=== PATIENT | female | born 1955 | race Caucasian/White ===

== ENCOUNTER 2023-06-30 08:38 | Outpatient (CLI) | payer MEDICARE, MEDICAID, SELFPAY ==
--- NOTE | ~2023-06-30 | MM_ITS ---
EXAMINATION: MM screening dio BI w delfino HISTORY: Screening mammogram TECHNIQUE: Craniocaudal and mediolateral oblique 3-D tomosynthesis images were obtained and synthetic 2-D images were generated. CAD analysis was submitted and interpreted. COMPARISON: No prior mammogram is available for comparison at this institution. BREAST PARENCHYMAL COMPOSITION: There are scattered areas of fibroglandular density. FINDINGS: Bilateral benign calcifications. There is no evidence of suspicious mass, calcification, or architectural distortion to suggest malignancy in either breast. There has been no suspicious interv al change. IMPRESSION: 1. No mammographic evidence of malignancy. 2. Recommend routine screening mammography in one year. BI-RADS Category 2: Benign finding(s). Reviewed, dictated and finalized at location [facility]. [employer]
--- NOTE | ~2023-06-30 | DEXA_ITS ---
Bone Density Report Name: LUZ FERGUSON Age: 67 Sex: Female Ethnicity: White Date of : 1955 Indication: postmenopausal; screening for osteoporosis; height loss; Referring Provider: CHRIS, LACIE Study: Bone densitometry was performed. Exam Date: June 30, 2023 Accession number: [id number] Bone Density: Region BMD T-score Z-score Classification AP Spine(L1-L4) 1.082 0.3 2.1 Normal Femoral Neck (Left) 0.898 0.4 2.0 Normal Total Hip (Left) 0.943 0.0 1.3 Normal Femoral Neck (Right) 0.827 -0.2 1.4 Normal Total Hip (Right) 0.917 -0.2 1.1 Normal Total Hip Mean 0.930 -0.1 1.2 Normal World Health Organization criteria for BMD impression classify patients as: Normal (T-score at or above -1.0), Osteopenia (T-score between -1.0 and -2.5), or Osteoporosis (T-score at or below -2.5). 10-year Fracture Risk: FRAX not reported because: All T-scores for Spine Total, Hip Total, Femoral Neck at or above -1.0 Clinical Information Provided by Patient: Smokes Has used the following medications: Vitamin D Patient maximum height was 64 Menopause Age: 50 No regular weight bearing exercise Does not regularly consume dairy products Drinks caffeinated beverages Onset of menses at age 14 Number of children 5 Impression: The patient has normal bone mass. The patient has risk factors, including: smoking. Discussion: BONE DENSITY IS ABOVE THE MINIMUM DESIRABLE LEVEL AT ALL SKELETAL SITES TESTED. This patient?s bone mineral density is above the minimum desirable level (T-score -1.0 or better) at all sites measured. The patient should follow a healthful lifestyle (good nutrition with adequate calcium and vitamin D, and appropriate weight-bearing exercise). Follow-Up: Consider repeating this study in 5 years or sooner if there is some new clinical indication. Reported by: SANTIAGO on 06/30/2023 9:12:00 AM. Reviewed, dictated and finalized at location Kalee BLACK
== END 2023-06-30 08:39 | disposition home or self-care (01) ==
PROVIDERS: PCP Nurse Practitioner Family; Visit Provider Nurse Practitioner Family
DX: Z12.31 Encounter for screening mammogram for malignant neoplasm of breast (principal); Z78.0 Asymptomatic menopausal state
CPT/HCPCS: 77063; 77067; 77080

== ENCOUNTER 2025-03-16 11:42 | Outpatient (CLI) | payer MEDICARE, SELFPAY ==
--- NOTE | 2025-03-16 | ECG_ITS ---
Test Date: 2025-03-16 12:11:08 Measurements Intervals [place] Rate: 91 P: 45 IL: 155 QRS: 11 QRSD: 86 T: 74 QT: 357 QTc: 441 Interpretive Statements SINUS RHYTHM LEFT VENTRICULAR HYPERTROPHY WITH ST-T CHANGE CONSIDER INFERIOR INFARCT, AGE INDETERMINATE CANNOT R/O SEPTAL INFARCT, AGE INDETERMINATE BASELINE ARTIFACT- I, II, III, AVR, AVL, AVF, V1 ABNORMAL ECG No previous ECG available for comparison Electronically Signed On 03-16-2025 12:52:38 CDT by Rizwan Wiley D.O.
--- OUTSIDE RECORDS SUMMARY | 2025-03-16 11:53 | XMS_ITS | Patient Health Record ---
Author Organization [facility] Address [address] [place] [address] Care Team Providers Care Manufacturing Inspector Name Role Phone Mikel Snowden Primary Care Provider Shankar LINK Unavailable Unavailable Barbara Carmona Unavailable [phone] Allergies Allergen (clinical drug ingredient) Drug/Non Drug Allergy documented on EMR Reaction Allergy Type Onset Date Status Penicillin Unknown Drug Allergy Active Results Component Value Reference Range Notes Hemoglobin A1c* Reviewed date:11/28/2024 10:54:29 AM Interpretation: Performing Lab:[facility], [address] [facility], Phone - [phone], Director - Palomo Notes/Report: Hemoglobin A1c 5.3 4.8-5.6 % . Prediabetes: 5.7 - 6.4 Diabetes: >6.4 Glycemic control for adults with diabetes: <7.0 CBC With Differential/Platel et* Reviewed date:11/28/2024 10:54:29 AM Interpretation: Performing Lab:[facility], [address] [facility], Phone - [phone], Director - PhDRicdoris Notes/Report: WBC 4.5 3.4-10.8 x10E3/uL RBC 4.04 3.77-5.28 x10E6/uL Hemoglobin 12.1 11.1-15.9 g/dL Hematocrit 37.6 34.0-46.6 % MCV 93 79-97 fL MCH 30.0 26.6-33.0 pg MCHC 32.2 31.5-35.7 g/dL RDW 13.1 11.7-15.4 % Platelets 126 150-450 x10E3/uL Neutrophils 70 Not Estab. % Lymphs 18 Not Estab. % Monocytes 9 Not Estab. % Eos 2 Not Estab. % Basos 1 Not Estab. % Neutrophils (Absolute) 3.1 1.4-7.0 x10E3/uL Lymphs (Absolute) 0.8 0.7-3.1 x10E3/uL Monocytes(Absolute) 0.4 0.1-0.9 x10E3/uL Eos (Absolute) 0.1 0.0-0.4 x10E3/uL Baso (Absolute) 0.1 0.0-0.2 x10E3/uL Immature Granulocytes 0 Not Estab. % Immature Grans (Abs) 0.0 0.0-0.1 x10E3/uL Lipid Panel* Reviewed date:11/28/2024 10:54:29 AM Interpretation: Performing Lab:[facility], [address] [place] [address], Phone - [phone], Director - [facility] Notes/Report: Cholesterol, Total 231 100-199 mg/dL Triglycerides 278 0-149 mg/dL HDL Cholesterol 55 >39 mg/dL VLDL Cholesterol Matti 49 5-40 mg/dL LDL Chol Calc ([facility]) 127 0-99 mg/dL CMP 14 Comprehensive Metabol ic Panel* Reviewed date:11/28/2024 10:54:29 AM Interpretation: Performing Lab:[facility], [address] [place] [address], Phone - [phone], Director - [facility] Notes/Report: Glucose 111 70-99 mg/dL BUN 17 8-27 mg/dL Creatinine 0.81 0.57-1.00 mg/dL eGFR 80 >59 mL/min/1.73 BUN/Creatinine Ratio 21 12-28 Sodium 140 134-144 mmol/L Potassium 4.2 3.5-5.2 mmol/L Chloride 101 96-106 mmol/L Carbon Dioxide, Total 23 20-29 mmol/L Calcium 9.5 8.7-10.3 mg/dL Protein, Total 7.0 6.0-8.5 g/dL Albumin 4.5 3.9-4.9 g/dL Globulin, Total 2.5 1.5-4.5 g/dL Bilirubin, Total <0.2 0.0-1.2 mg/dL Alkaline Phosphatase 57 44-121 IU/L AST (SGOT) 33 0-40 IU/L ALT (SGPT) 30 0-32 IU/L TSH Rfx on Abnormal to Free T4 Reviewed date:11/28/2024 10:54:29 AM Interpretation: Performing Lab:[facility], [address] [facility], Phone - [phone], Director - Lianne Notes/Report: TSH 3.420 0.450-4.500 uIU/mL UA/M w/rflx Culture, Routine Reviewed date:11/28/2024 10:54:29 AM Interpretation: Performing Lab:[facility], [address] [facility], Phone - [phone], Director - [facility] Notes/Report: Specific [place] 1.024 1.005-1.030 pH 5.5 5.0-7.5 Urine-Color Yellow Yellow Appearance Cloudy Clear WBC Esterase 1+ Negative Protein Trace Negative/Trace Glucose Negative Negative Ketones Negative Negative Occult Blood Negative Negative Bilirubin Negative Negative Urobilinogen,Semi-Qn 0.2 0.2-1.0 mg/dL Nitrite, Urine Negative Negative Microscopic Examination See below: Micr oscopic was indicated and was performed. Urinalysis Reflex This speci men has reflexed to a Urine Culture. WBC 11-30 0 - 5 /hpf RBC 0-2 0 - 2 /hpf Epithelial Cells (non renal) >10 0 - 10 /hpf Casts None seen None seen /lpf Bacteria Moderate None seen/Few Urine Culture, Routine Final report Result 1 Escherichia coli Cefazolin with an MARLYS <=16 predicts susceptibility to the oral agents cefaclor, cefdinir, cefpodoxime, cefprozil, cefuroxime, cephalexin, and loracarbef when used for therapy of uncomplicated urinary tract infections due to E. coli, Klebsiella pneumoniae, and Proteus mirabilis. Greater than 100,000 colony forming units per mL Antimicrobial Susceptibility S = Susceptible; I = Intermediate; R = Resistant P = Positive; N = Negative MICS are expressed in micrograms per mL Antibiotic RSLT#1 RSLT#2 RSLT#3 RSLT#4 Amoxicillin/Clavulanic Acid I Ampicillin R Cefazolin S Cefepime S Cefoxitin S Cefpodoxime S Ceftriaxone S Ciprofloxacin S Ertapenem S Gentamicin S Levofloxacin S Meropenem S Nitrofurantoin S Piperacillin/Tazobactam S Tetracycline S Tobramycin S Trimethoprim/Sulfa S Hemoglobin A1c CLIA Waived Reviewed date:01/27/2025 09:24:19 AM Interpretation: Performing Lab: Notes/Report: Hemoglobin A1c 5.7 4.0 - 6.4 % CMP 14 Comprehensive Metabol ic Panel* Reviewed date:11/09/2024 03:25:38 PM Interpretation: Performing Lab:[facility], [address] [facility], Phone - [phone], Director - [facility] Notes/Report: Glucose TNP Test not perfor med. No serum gel received. BUN TNP Test not perfor med Creatinine TNP Test not perfor med Sodium TNP Test not perfor med Potassium TNP Test not perfor med Chloride TNP Test not perfor med Carbon Dioxide, Total TNP Test n ot performed Calcium TNP Test not perfor med Protein, Total TNP Test not perf ormed Albumin TNP Test not perfor med Bilirubin, Total TNP Test not pe rformed Alkaline Phosphatase TNP Test no t performed AST (SGOT) TNP Test not perfor med ALT (SGPT) TNP Test not perfor med Hemoglobin A1c* Reviewed date:11/09/2024 03:25:38 PM Interpretation: Performing Lab:[facility], [address] [place] [address], Phone - [phone], Director - [facility] Notes/Report: Hemoglobin A1c TNP Test not performed. No lavender top tube submitted. . Prediabetes: 5.7 - 6.4 Diabetes: >6.4 Glycemic control for adults with diabetes: <7.0 TSH Rfx on Abnormal to Free T4 Reviewed date:11/09/2024 03:25:38 PM Interpretation: Performing [facility], [address] [facility], Phone - [phone], Director - [facility] Notes/Report: TSH TNP Test not perfor med. No serum gel received. Specimen Status Report TNP Test not performed. No lavender top tube submitted. TEST: [id number] CBC With Differential/Platelet [id number] Hemoglobin A1c Request Problem TNP Test not performed. No serum gel received. TEST: [id number] Comp. Metabolic Panel (14) [id number] Lipid Panel [id number] TSH Rfx on Abnormal to Free T4 Lipid Panel* Reviewed date:11/09/2024 03:25:38 PM Interpretation: Performing Lab:[address], Phone - [phone], Director - [facility] Notes/Report: Cholesterol, Total TNP Test not performed. No serum gel received. Triglycerides TNP Test not perfo rmed HDL Cholesterol TNP Test not per formed VLDL Cholesterol Matti TNP Unable to calculate result since non-numeric result obtained for component test. Urinalysis In-House, Routine Reviewed date:11/07/2024 04:50:59 PM Interpretation: Performing Lab: Notes/Report: Urine-Color mark Appearance clear Leukocytes neg Nitrite, Urine neg Urobilinogen,Semi-Qn 0.2 Protein neg pH 5.5 Occult Blood ng Specific [place] 1.030 Ketones neg Bilirubin neg Glucose neg Written Authorization Reviewed date:11/14/2024 02:28:22 PM Interpretation: Performing Lab:[facility] [address], Phone - [phone], Director - [facility] Notes/Report: Written Authorization Written Authorization Received. Authorization received from Original Requisition 11-09-2024 Logged by Severo José UA/M w/rflx Culture, Routine Reviewed date:11/14/2024 02:28:22 PM Interpretation: Performing Lab:[facility], Phone - [phone], Director - [facility] Notes/Report: Specific [place] TNP Test not performed. Test not performed. Attempts to contact your facility were unsuccessful. SAMPLE HAS BEEN DISCARDED pH TNP Test not perfor med Protein TNP Test not perfor med Glucose TNP Test not perfor med Ketones TNP Test not perfor med Specimen Status Report TNP Test not performed. Test not performed. Attempts to contact your facility were unsuccessful. TEST: [id number] UA/M w/rflx Culture, Routine SAMPLE HAS BEEN DISCARDED CBC With Differential/Platel et* Reviewed date:11/09/2024 03:25:38 PM Interpretation: Performing Lab:[address], Phone - [phone], Director - [facility] Notes/Report: WBC TNP Test not perfor med. No lavender top tube submitted. RBC TNP Test not perfor med Hemoglobin TNP Test not perfor med Hematocrit TNP Test not perfor med Platelets TNP Test not perfor med Neutrophils TNP Test not perfor med Lymphs TNP Test not perfor med Monocytes TNP Test not perfor med Eos TNP Test not perfor med Lymphs (Absolute) TNP Test not p erformed Eos (Absolute) TNP Test not perf ormed Baso (Absolute) TNP Test not per formed Reason For Referral Reason Abdominal hernia Diagnosis 1 Abdominal hernia (K4 6.9) Referral Organization [facility] Referring Provider First Name Barbara Referring Provider Last Name Short Referring Provider [facility] Referred Provider Specialty General Surg saima General Notes Natasha Orr 11/14/2024 04:17:17 PM >verified with staff that patients insurance is accepted., Natasha Orr 11/14/2024 04:22:52 PM >letter mailed, message sent, Natasha Orr 11/15/2024 05:13:47 PM >Patient given number to general surgeons office., Natasha Orr 12/19/2024 12:10:13 PM >refaxing referral to [facility], Attn: Marycruz- No imaging available to send. Added lab results, Didier KUMAR, Ladonna Bhagat 02/14/2025 12:38:24 PM > Pt had surgery. Notes in Pt documents. Clinical [place] [facility] [address] [place] [address] [place] [address]. [id number], , Referral Priority Routine Medications Medication SIG (Take, Route, Frequency, Duration) Notes Start Date End Date Status Fish Oil 1000 MG 1 capsule Orally onc e a day Active Triamcinolone Acetonide 0.1 % 1 application Externally twice a day 01/27/2025 Active Lisinopril 40 MG 1 tablet Orally Once a day; Duration: 30 days Active Iron 325 (65 Fe) MG 1 tablet Orally once a day Active Vitamin D2 Active Metoprolol Tartrate 25 MG TAKE 1 TABLET BY MOUTH DAILY WITH FOOD; Duration: 90 Active metFORMIN HCl 1000 MG 1 tablet with a me al Orally twice a day; Duration: 30 days Active Furosemide 40 MG 1 tablet Orally Once a day; Duration: 30 days Active AZO Bladder Control/Go-Less - as directed Orally Acti ve Aspirin 81 81 MG 1 tablet Orally ever y other day Not-Taking Nitrofurantoin Monohyd Macro 100 MG 1 capsule with food Orally every 12 hrs; Duration: 5 days 11/28/2024 Not-Taking Social History Tobacco Use: Social History Observation Description Date Details (start date - stop date) Former Smoker NA - NA Tobacco Control (Standard) Question Answer Notes Tobacco use: Former smoker How long has it been since y ou last smoked? 6-12 months Additional Findings: Tobacco non-user Cu rrent nonsmoker,Nonsmoker for personal reasons Problems Problem Type SNOMED Code ICD Code Onset Dates Problem Status W/U Status Risk Notes Problem Hypertension (42968513) Hypertension (I10) Active confirmed Problem Overweight (317938031) Over weight (E66.3) Active confirmed Problem Diabetes mellitus (75130421) Diabetes mellitus (E11.9) Active confirmed Problem Mixed hyperlipidemia (635076538) Elevated triglycerides with high cholesterol (E78.2) Active confirmed Problem Thrombocytopenic disorder (433623789) Decreased platelet count (D69.6) Active confirmed Problem Tobacco user (302763462) Vaping nicotine dependence, 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) Active confirmed Vital Signs Heart Rate 83 /min 01/27/2025 Temperature 97.7 degrees Fahrenheit 01/27/2025 Respiratory Rate 16 /min 01/27/2025 Oximetry 99 % 01/27/2025 Blood pressure diastolic 78 mm Hg 01/27/2025 Height 62 in 01/27/2025 Blood pressure systolic 122 mm Hg 01/27/2025 Weight 205.0 lbs 01/27/2025 BMI 37.49 kg/m2 01/27/2025 Encounters Encounter Location Date Provider Diagnosis [facility] [address] [place] [address] 11/18/2024 Barbara Carmona Screening for diabet es mellitus Z13.1 ; Screening for deficiency anemia Z13.0 ; Screening for hyperlipidemia Z13.220 ; Screening for metabolic disorder Z13.228 ; Screening for thyroid disorder Z13.29 and Symptoms of urinary tract infection R39.9 [facility] [address] [place] [address] 11/07/2024 Barbara Carmona Establishing care wi th new doctor, encounter for Z71.89 ; Screening for deficiency anemia Z13.0 ; Screening for metabolic disorder Z13.228 ; Screening for diabetes mellitus Z13.1 ; Screening for thyroid disorder Z13.29 ; Screening for hyperlipidemia Z13.220 ; Over weight E66.3 ; Dysuria R30.0 ; Screening for breast cancer Z12.31 ; Abdominal hernia K46.9 ; Hypertension I10 ; Diabetes mellitus E11.9 and Vaping nicotine dependence, tobacco product F17.290 [facility] [place] [place] [address] 01/27/2025 Mikel Snowden Cardiac murmur R01.1 ; Chest pain R07.9 ; Hypertension I10 ; Diabetes mellitus E11.9 ; Umbilical hernia K42.9 ; Over weight E66.3 and Eczema of both external ears H60.[address] [place] [address] 11/09/2024 Barbara Carmona Screening for deficiency anemia Z13.0 ; Screening for metabolic disorder Z13.228 ; Screening for diabetes mellitus Z13.1 ; Screening for thyroid disorder Z13.29 and Screening for hyperlipidemia Z13.220 [facility] [place] [place] [address] 11/14/2024 Barbara Carmona Symptoms of urinary tract infection R39.9 [facility] [address] [place] [address] 11/15/2024 Mikel Snowden [facility] [place] [address] 11/15/2024 Mikel Snowden [facility] [place] [address] 11/18/2024 Mikel Snowden [address] [place] [address] 11/28/2024 Barbara Carmona Decreased platelet count D69.6 ; Elevated triglycerides with high cholesterol E78.2 and Urinary tract infection N39.0 [facility] [address] [place] [address] 12/19/2024 Mikel Snowden [address] [facility] [place] [address] 01/30/2025 Mikel Snowden [address] [place] [address] 02/06/2025 Mikel Snowden [address] [place] [address] 02/06/2025 Mikel Snowden Assessments Encounter Date Diagnosis (ICD Code) Assessment Notes Treatment Notes Treatment Clinical Notes Section Notes 11/07/2024 Establishing care with new doctor, encounter for (ICD-10 - Z71.89) 11/07/2024 Screening for deficiency anemia (ICD-10 - Z13.0) 11/09/2024 Screening for metabolic disorder (ICD-10 - Z13.228) 11/09/2024 Screening for deficiency anemia (ICD-10 - Z13.0) 11/18/2024 Screening for diabetes mellitus (ICD-10 - Z13.1) 11/28/2024 Elevated triglycerides with high cholesterol (ICD-10 - E78.2) 11/28/2024 Decreased platelet count (ICD-10 - D69.6) 01/27/2025 Chest pain (ICD-10 - R07.9) C/W NON-CARDIAC PAIN 01/27/2025 Cardiac murmur (ICD-10 - R01.1) 11/14/2024 Symptoms of urinary tract infection (ICD-10 - R39.9) 01/27/2025 Hypertension (ICD-10 - I10) 11/18/2024 Screening for deficiency anemia (ICD-10 - Z13.0) 11/28/2024 Urinary tract infection (ICD-10 - N39.0) 11/09/2024 Screening for diabetes mellitus (ICD-10 - Z13.1) 11/07/2024 Screening for metabolic disorder (ICD-10 - Z13.228) 11/09/2024 Screening for thyroid disorder (ICD-10 - Z13.29) 11/07/2024 Screening for diabetes mellitus (ICD-10 - Z13.1) 11/18/2024 Screening for hyperlipidemia (ICD-10 - Z13.220) 01/27/2025 Diabetes mellitus (ICD-10 - E11.9) 01/27/2025 Umbilical hernia (ICD-10 - K42.9) [facility] 11/18/2024 Screening for metabolic disorder (ICD-10 - Z13.228) 11/07/2024 Screening for thyroid disorder (ICD-10 - Z13.29) 11/09/2024 Screening for hyperlipidemia (ICD-10 - Z13.220) 11/18/2024 Screening for thyroid disorder (ICD-10 - Z13.29) 11/07/2024 Screening for hyperlipidemia (ICD-10 - Z13.220) 01/27/2025 Over weight (ICD-10 - E66.3) 01/27/2025 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 Pt was educated on use of antibiotic medication including dosing, side effects, adverse effects and anticipated response. Pt was also educated on importance of completing full course of treatment as ordered. Patient voiced understanding of all. Plan Of Treatment Future Test Test Name Order Date Electrocardiogram (EKG) 01/27/2025 Echo doppler exam 01/27/2025 Insurance Providers Payer Name Payer Address Payer Phone Subscriber Number Group Number Insured Name Patient Relationship to Insured Coverage Start Date Coverage End Date [facility] [address] [address] [place] [address] [id number] YinkaAna Luisa Self - patient is the insured Medical (General) History Surgical History Surgery Date(Month/Year) tonsillectomy 1977 cholecystectomy 1989
--- OUTSIDE RECORDS SUMMARY | 2025-03-16 11:53 | XMS_ITS | Clinical Summary ---
Author Organization [facility] Address [facility] [place] [address] Care Team Providers Care Art Professor Name Role Phone Mikel Snowden MD Primary Care Provider [phone] Allergies Active Allergy Reactions Criticality Noted Date Comments Penicillins Unknown 03/08/2013 Medications allopurinol 100 MG tablet Take 1 tablet (100 mg total) by mouth daily. 17 06/28/2019 Active vitamin D2, ergocalciferol, 68239 UNITS capsule Take 1 capsule (50,000 Units total) by mouth once a week. 12 06/27/2019 Active furosemide 40 MG tablet Take 1 tablet (40 mg total) by mouth every morning. FOR 14 DAYS 5 06/28/2019 Active lisinopril 40 MG tablet Take 1 tablet (40 mg total) by mouth every morning. FOR 14 DAYS 4 06/28/2019 Active metFORMIN 1000 MG tablet Take 1 tablet (1,000 mg total) by mouth 2 (two) times daily. 4 06/28/2019 Active metoprolol succinate ER 25 MG 24 hr tablet Take 1 tablet (25 mg total) by mouth daily. 4 06/28/2019 Active potassium chloride CR 10 MEQ tablet Take 1 tablet (10 mEq total) by mouth every other day. 4 06/28/2019 Active acetaminophen (TYLENOL) 325 MG tablet Take 2 tablets (650 mg total) by mouth every 4 (four) hours as needed for Pain. For Mild Pain or Fever 02/09/2025 Active oxyCODONE-aceta minophen (PERCOCET) 5-325 MG tabletIndicatio ns:Acute Pain < 7 Day Supply Take 1-2 tablets by mouth every 6 (six) hours as needed for Pain. Indications: Acute Pain < 7 Day Supply For Severe Pain 12 tablet 02/09/2025 Active Active Problems No known active problems Encounters Date Type Department Care Team Description 02/09/2025 9:32 AM CDT - 02/09/2025 11:43 AM CDT Surgery [facility] [place] [address] Max Fairchild MD ROBOTIC ASSISTED LAPAROSCOPIC INCARCERATED UMBILICAL HERNIA REPAIR WITH MESH 02/09/2025 9:32 AM CDT Anesthesia Event [facility] [place] [address] Daisha Jain MD Jackson, Samantha Rae, FNP 02/09/2025 7:31 AM CDT - 02/09/2025 1:10 PM CDT Hospital Encounter [facility] [place] [address] Max Fairchild MD Discharge Disposition: Home or Self Care (Routine Discharge) 02/09/2025 Travel 02/02/2025 Travel from Last 3 Months Immunizations Immunization Administration Dates Next Due Tdap (Boostrix) 07/20/2019 Family History Medical History Relation Comments Cancer Father Cancer Mother Relation Status Comments Father Mother Social History Tobacco Use Types Packs/Day Years Used Date Smoking Tobacco: Former Cigarettes Smokeless Tobacco: Never Tobacco Cessation:Counseling Given: Not Answered Alcohol Use Standard Drinks/Week Comments No 0 (1 standard drink = 0.6 oz pur e alcohol) AUDIT-C Answer Date Recorded Frequency of Alcohol Consumption Never 07/20/2019 Average Number of Drinks Not on file 019 Frequency of Binge Drinking Not on file 07/10 Comments No Sex and Gender Information Value Date Recorded Sex Assigned at Not on file Legal Sex Female 4:50 PM CDT Gender Identity Not on file Sexual Orientation Not on file Last Filed Vital Signs Vital Sign Reading Time Taken Comments Blood Pressure 125/82 02/09/2025 1:05 PM CDT Pulse 91 02/09/2025 1:05 PM CDT Temperature 36.4 C (97.6 F) 02/09/2025 1:05 PM CDT Respiratory Rate 16 02/09/2025 1:05 PM CDT Oxygen Saturation 96% 02/09/2025 1:05 PM CDT Inhaled Oxygen Concentration - - Weight 90.9 kg (200 lb 6.4 oz) 02/09/2025 8:00 A M CDT Height 157.5 cm (5' 2) 02/09/2025 8:00 AM CDT Body Mass Index 36.65 02/09/2025 8:00 AM CDT Plan of Treatment Health Maintenance Due Date Last Done Comments Colorectal Cancer Screening Colonoscopy (10 Years) 1955 Hepatitis C 1975 Mammogram Screening 1997 Zoster Vaccines (1 of 2) 2007 Pneumococcal Vaccine: 50+ Years (3 of 3 - PCV20 or PCV21) 06/18/2021 06/18/2016, 12/21/2014 Annual Medicare Wellness Visit 2022 Dexa Scan (General) 2022 COVID-19 Vaccine (2 - 2023-2 5 season) 2024 10/16/2020, 10/16/2020 DTaP, Tdap and Td Vaccines ( 3 - Td or Tdap) 07/20/2029 07/20/2019, 06/18/2016 RSV Immunization or 60+ Years (1 - 1-dose 75+ series) 2032 Meningococcal B Vaccine Aged Out No l onger eligible based on patient's age to complete this topic Meningococcal Vaccine Aged Out No elaine jemal eligible based on patient's age to complete this topic RSV Immunizations Under 20 Months Aged Out No longer eligible b ased on patient's age to complete this topic Medical Devices Implanted Type Area Smt Machine Operator Device Identifier Shelf Expiration Date Model / Serial / Lot Mesh Ventralight St 4.5in [place] - [id number] Implanted:Qty: 1 on 02/09/2025 by Max Fairchild MD at [facility] [employer] [id number] 08/06/2026 [id number] / / [id number] Procedures Procedure Name Priority Date/Time Associated Diagnosis Comments POCT GLUCOSE - DOCKED DEVICE Routine 02/09/2025 11:09 AM CDT RPR AA HRN 1ST < 3 CM RDC 02/09/2025 9:32 AM CDT UMBILICAL HERNIA K42.9 Case Notes SCHED WITH HECTOR ON 12/27/24 JDK PHONE ASSESS POCT GLUCOSE - DOCKED DEVICE Routine 02/09/2025 8:21 AM CDT BASIC METABOLIC PANEL Routine 02/09/2025 8:18 AM CDT from Last 3 Months Results * (ABNORMAL) POCT glucose (02/09/2025 11:09 AM CDT) Only the most recent of2 resultswithin the time period is included. GLUCOSE POC 192(H) 70 - 99 mg/dL 02/09/2025 11:15 AM CDT [facility] 02/09/2025 11:0 9 AM CDT Max Fairchild MD POCT ORDERABLES - DEVICE Final Result [facility] [address] [place] [address], [place] [phone] * (ABNORMAL) BASIC METABOLIC PANEL (02/09/2025 8:18 AM CDT) GLUCOSE 125(H) 70 - 99 MG/DL 02/09/2025 8:52 AM CDT [facility] BUN 31(H) 7 - 18 MG/DL 02/09/2025 8:52 AM CDT [facility] CREATININE S/P/B 0.88 0.55 - 1.02 MG/DL 02/09/2025 8:52 AM CDT [facility] SODIUM S/P/B 138 136 - 145 MMOL/L 02/09/2025 8:52 AM CDT [facility] POTASSIUM S/P/B 3.9 3.5 - 5.1 MMOL/L 02/09/2025 8:52 AM CDT [facility] CHLORIDE S/P/B 107 97 - 115 MMOL/L 02/09/2025 8:52 AM CDT [facility] CO2 22.7 21 - 32 MMOL/L 02/09/2025 8:52 AM CDT [facility] CALCIUM S/P/B 9.5 8.5 - 10.1 MG/DL 02/09/2025 8:52 AM CDT [facility] ANION GAP 8.3 2 - 10 MMOL/L 02/09/2025 8:52 AM CDT [facility] BUN CREATININE RATIO 35.3(H) 6 - 26 02/09/2025 8:52 AM CDT [facility] GFR ESTIMATE 72(L) >90 ML/MIN/1.7 3 M2 02/09/2025 8:52 AM CDT [facility] Comment: NOTE: eGFR is not calculated for patients <18 years of age or gender unknown. This is an estimated GFR calculation using the new CKD EPI creatinine equation without race and so does not require a correction factor for race. This estimated GFR should not be used for calculating drug doses. 02/09/2025 8:18 AM CDT Daisha Jimenez MD LABORATORY Final Result [facility] [address] [place] [address], [place] [phone] from Last 3 Months Insurance [facility] Care Teams Art Professor Relationship Specialty Start Date End Date Mikel Snowden MD [address] [facility] [address] [place] [id number] PCP - General INTERNAL MEDICINE 02/06/25
--- OUTSIDE RECORDS SUMMARY | 2025-03-16 11:53 | XMS_ITS | Encounter Summary ---
Author Organization [facility] Address [address] [place] [address] Care Team Providers Care Supervisor Orchard Name Role Phone Stephania Goff MD Primary Care Provider [phone] Mikel Snowden MD Primary Care Provider [phone] Encounter Details Date Type Department Care Team (Latest Contact Info) Description 06/15/2018 Abstract [facility] Letty Mike MD Social History Tobacco Use Types Packs/Day Years Used Date Smoking Tobacco: Never Assessed Comments Unknown Sex and Gender Information Value Date Recorded Sex Assigned at Not on file Legal Sex Female 4:50 PM CDT Gender Identity Not on file Sexual Orientation Not on file documented as of this encounter Plan of Treatment Not on file documented as of this encounter Visit Diagnoses Not on filedocumented in this encounter Care Teams Supervisor Orchard Relationship Specialty Start Date End Date Stephania Goff MD [address] [place] [address] PCP - General FAMILY PRACTICE 07/20/19 02/01/25 Mikel Snowden MD [address] [facility] [address] [place] [address] PCP - General INTERNAL MEDICINE 02/06/25 documented as of this encounter
--- OUTSIDE RECORDS SUMMARY | 2025-03-16 11:53 | XMS_ITS | Continuity of Care Document ---
Author Organization [facility] ter Address [address] [place] [address] Phone Care Team Providers Care Threading Machine Operator Name Role Phone Puneet Murray Unavailable Unavailable Medications Medication Instructions Dosage Effective Dates (start - stop) Status Comments metformin 850 mg tablet 1 po bid - Active lisinopril 20 mg tablet 1 po qd - Active POTASSIUM CHLORIDE 10MEQ CAPSULE SA 1 po qd - Active Lasix 40 mg tablet 1 po qd - Active Glucophage 500 mg tablet 1 po bid - Active Norvasc 10 mg tablet 1 po qd - Active Aspir-81 81 mg tablet,delayed release 1 po qd - Active Tenormin 25 mg tablet 1 po qd - Active LEVAQUIN 750 MGTABLET 1 po qd - Active Flonase 50 mcg/actuation Nasal [place] 1-2 sprays nasally qd - Active metformin 850 mg tablet 1 po bid - No Longer Active lisinopril 20 mg tablet 1 po qd - No Longer Active Procedures Procedure Date Offic/outpt E&m Estab Mod-ak 2 07 Offic/outpt E&m Estab Mod-ak 2 07 Offic/outpt E&m Estab Mod-ak 2 07 Offic/outpt E&m Estab Mod-ak 2 Skin Tag Removal Multiple, Up To 15 Offic/outpt E&m [facility] 7 Advance Directives Directive Yes / No Effective Date File Name No Information Encounters Encounter Description Practice Location Reason(s) For Visit Diagnoses Date Provider Providers Copied on Encounter Offic/outpt E&m Estab Mod-hi 2 [facility], [address], [place], [place], [id number], tel:[phone] [facility] No Information Terri Teixeira. [address] [facility], [address], [place], [place], [facility], . tel:[phone] Offic/outpt E&m Estab Mod-[address], [address] [facility] [address], [place], [place], [id number], tel:[phone] [facility] No Information Terri Teixeira. [address] [facility], [address], [place], [place], [facility], . tel:[phone] Offic/outpt E&m Estab [facility]-[address], [address] [facility] [address], [place], [place], [id number], tel:[phone] [facility] No Information Terri Teixeira. [address] [facility], [address], [place], [place], [facility], . tel:[phone] Offic/outpt E&m Estab [facility]-[address], [address] [facility] [address], [place], [place], [id number], tel:[phone] [facility] No Information Terri Teixeira. [address] [facility], [address], [place], [place], [facility], . tel:[phone] Referring Provider: Puneet Lang, [address] [facility] [address], [place], [address]. tel:[phone] Offic/outpt E&m [facility], [address], [place], [place], [id number], [place] tel:[phone] [facility] No Information Terri Teixeira. [address] [facility], [address], [place], [address], [place]. tel:[phone] Family History Family Member Type Diagnosis Age At Onset No Information Payers Payer name Insurance type Covered constitution party ID Authoriza brain(s) Bcbs CI [id number] Social History Type Description Quantity Date Captured Comments Sex Female Smoking Status No Information Chief Complaint And Reason For Visit No Information Reason For Referral Reason For Referral No Information History Of Present Illness Encounter Date Complaint History Of Prese nt Illness No Information Functional Status Date Functional Assessmen t No Information Instructions Date Instruction Additional Infor mation No Information Assessments Type Assessment Date No Information Patient Care Teams Name Effective Dates (start - stop) Status Members No Information
--- OUTSIDE RECORDS SUMMARY | 2025-03-16 11:53 | XMS_ITS ---
Author Organization [facility] Address [address] [place] [address] Care Team Providers Care Mask Designer Name Role Phone Snowden Mikel Primary Care Provider [phone] Shankar LINK Unavailable Unavailable Barbara Carmona Unavailable [phone] Results Component Value Reference Range Notes UA/M w/rflx Culture, Routine Reviewed date:11/28/2024 10:54:29 AM Interpretation: Performing Lab:[facility] [place], [address] [facility], Phone - [phone], Director - Palomo Notes/Report: Specific [place] 1.024 1.005-1.030 pH 5.5 5.0-7.5 Urine-Color Yellow [...] S Tetracycline S Tobramycin S Trimethoprim/Sulfa S TSH Rfx on Abnormal to Free T4 Reviewed date:11/28/2024 10:54:29 AM Interpretation: Performing Lab:[facility] [place] [facility], [address] [place] [address], Phone - [phone], Director - Palomo Notes/Report: TSH 3.420 0.450-4.500 uIU/mL CMP 14 Comprehensive Metabol ic Panel* Reviewed date:11/28/2024 10:54:29 AM Interpretation: Performing Lab:[facility] [place], [address] [facility], Phone - [phone], Director - Palomo Notes/Report: Glucose 111 70-99 mg/dL BUN 17 [...] 0-40 IU/L ALT (SGPT) 30 0-32 IU/L Lipid Panel* Reviewed date:11/28/2024 10:54:29 AM Interpretation: Performing Lab:[facility] [place], [address] [facility], Phone - [phone], Director - Palomo Notes/Report: Cholesterol, Total 231 100-199 mg/dL Triglycerides 278 0-149 mg/dL HDL Cholesterol 55 >39 mg/dL VLDL Cholesterol Matti 49 5-40 mg/dL LDL Chol Calc ([facility]) 127 0-99 mg/dL CBC With Differential/Platel et* Reviewed date:11/28/2024 10:54:29 AM Interpretation: Performing Lab:[facility] [place], [address] [facility], Phone - [phone], Director - Palomo Notes/Report: WBC 4.5 3.4-10.8 x10E3/uL RBC 4.04 [...] % Immature Grans (Abs) 0.0 0.0-0.1 x10E3/uL Hemoglobin A1c* Reviewed date:11/28/2024 10:54:29 AM Interpretation: Performing Lab:[facility] [place], [address] [facility] [place], Phone - [phone], Director - Palomo Notes/Report: Hemoglobin A1c 5.3 4.8-5.6 % . Prediabetes: 5.7 - 6.4 Diabetes: >6.4 Glycemic control for adults with diabetes: <7.0 REASON FOR VISIT blood draw, repeat urine Medications Medication SIG (Take, Route, Frequency, Duration) Notes Start Date End Date Status Furosemide 40 MG 1 tablet Orally Once a day Active Metoprolol Tartrate 25 MG 1 tablet with food Orally once a day Active Iron 325 (65 Fe) MG 1 tablet Orally once a day Active Vitamin D2 Active Fish Oil 1000 MG 1 capsule Orally onc e a day Active metFORMIN HCl 1000 MG 1 tablet with a me al Orally twice a day Active Lisinopril 40 MG 1 tablet Orally Once a day Active Aspirin 81 81 MG 1 tablet Orally ever y other day Active Encounters Encounter Location Date Provider Diagnosis [place] [address] [place] [address] 11/18/2024 Barbara Carmona Screening for diabet es mellitus Z13.1 ; Screening for deficiency anemia Z13.0 ; Screening for hyperlipidemia Z13.220 ; Screening for metabolic disorder Z13.228 ; Screening for thyroid disorder Z13.29 and Symptoms of urinary tract infection R39.9 Assessments Encounter Date Diagnosis (ICD Code) Assessment Notes Treatment Notes Treatment Clinical Notes Section Notes 11/18/2024 Screening for diabetes mellitus (ICD-10 - Z13.1) 11/18/2024 Screening for deficiency anemia (ICD-10 - Z13.0) 11/18/2024 Screening for hyperlipidemia (ICD-10 - Z13.220) 11/18/2024 Screening for metabolic disorder (ICD-10 - Z13.228) 11/18/2024 Screening for thyroid disorder (ICD-10 - Z13.29) 11/18/2024 Symptoms of urinary tract infection (ICD-10 - R39.9) Plan Of Treatment No Information Progress Notes * Ana Luisa HONEYCUTTDOB:1955 (69 yo F)Acc No.[id number]:11/18/2024 UNLOCKED PROGRESS NOTE Patient: Ana Luisa MOYA Provider: Ilana Carmona APRN :1955 A ge:69 Y S ex:Female Date:11/18/2024 Address:[address] [place], [place] [id number] Pcp:Mikel Snowden Check In:08:23 AM PRIMARY CARE MD Subjective: * Chief Complaints: * 1 . Blood draw, repeat urine. * Medical History: * Medications: T aking Aspirin 81 81 MG Tablet Delayed Release 1 tablet Orally every other day , Taking metFORMIN HCl 1000 MG Tablet 1 tablet with a meal Orally twice a day , Taking Lisinopril 40 MG Tablet 1 tablet Orally Once a day , Taking Furosemide 40 MG Tablet 1 tablet Orally Once a day , Taking Metoprolol Tartrate 25 MG Tablet 1 tablet with food Orally once a day , Taking Fish Oil 1000 MG Capsule 1 capsule Orally once a day , Taking Iron 325 (65 Fe) MG Tablet 1 tablet Orally once a day , Taking Vitamin D2 Objective: * Vitals: Assessment: * Assessment: 1. S creening for diabetes mellitus - Z13.1 2 . S creening for deficiency anemia - Z13.0 3 . S creening for hyperlipidemia - Z13.220 4 .?Screening for metabolic disorder - Z13.228 5 . S creening for thyroid disorder - Z13.29 6 . S ymptoms of urinary tract infection - R39.9 Plan: * Treatment: 2. S creening for deficiency anemia L AB: CBC With Differential/Platelet* (Collection Date & Time - 11/18/2024) 3. S creening for hyperlipidemia L AB: Lipid Panel* (Collection Date & Time - 11/18/2024) 4. S creening for metabolic disorder L AB: CMP 14 Comprehensive Metabolic Panel* (Collection Date & Time - 11/18/2024) 5. S creening for thyroid disorder L AB: TSH Rfx on Abnormal to Free T4 (Collection Date & Time - 11/18/2024) 6. S ymptoms of urinary tract infection L AB: UA/M w/rflx Culture, Routine (Collection Date & Time - 11/18/2024) * * Electronic signature of Tamika Carmona , [id number] on 03/16/2025 at 11:52 AM CDT Sign off status: Pending * Provider: Ilana Carmona APRN Date: 0 11/18/2024 Generated for Jeison burch/James/Mayra on: 0 03/16/2025 11:52 AM CDT
== END 2025-03-16 11:43 | disposition home or self-care (01) ==
LOC: ANHCARD 11:51
PROVIDERS: PCP Nurse Practitioner Family; Visit Provider Internal Medicine
DX: R07.9 Chest pain, unspecified (principal); R94.31 Abnormal electrocardiogram [ECG] [EKG]
CPT/HCPCS: 93005

== ENCOUNTER 2025-03-21 13:42 | Outpatient (CLI) | payer MEDICARE, MEDICAID, SELFPAY ==
--- NOTE | 2025-03-21 | ECHO_ITS ---
Patient Info Name: Ana Luisa Honeycutt Age: 69 years : 1955 Gender: Female Ht: 62 in Wt: 200 lbs BSA: 2.04 m2 HR: 80 bpm BP: 137 / 80 mmHg Technical Quality: Good Exam Date: 03/21/2025 1:57 PM Patient Status: O Admit Date: 03/21/2025 Exam Type: CA echo doppler color flow Complete two-dimensional, color flow and Doppler transthoracic echocardiogram is performed. Cellophaner: Amy Velásquez Attending Provider: Mikel Snowden MD Summary 1. Complete two-dimensional, color flow and Doppler transthoracic echocardiogram is performed. 2. Left ventricular chamber dimension is normal. 3. Left ventricular systolic function is normal, estimated at 60-65. 4. The left ventricular diastolic function is grade I diastolic dysfunction. 5. E/e' 10 is mildly elevated. 6. Left atrial chamber dimension is mildly enlarged. 7. There is mild aortic valve sclerosis. 8. There is mild aortic valve regurgitation. 9. The mitral valve has a mildly calcified annulus. 10. There is trace tricuspid valve regurgitation. 11. No pulmonary hypertension, estimated pulmonary arterial systolic pressure is 29 mmHg. 12. There is trace pulmonic regurgitation. 13. The prox ascending aorta size is borderline dilated at 4.0 cm. Left Ventricle E/e' 10 is mildly elevated. Left ventricular chamber dimension is normal. Left ventricular systolic function is normal, estimated at 60-65. The left ventricular diastolic function is grade I diastolic dysfunction. Right Ventricle Right ventricular chamber dimension is normal. Right ventricular systolic function is normal and with normal TAPSE 2.5 cm. Left Atria Left atrial chamber dimension is mildly enlarged. Right Atria Right atrial chamber dimension is normal. Aortic Valve The aortic valve is trileaflet. There is mild aortic valve sclerosis. There is no aortic valve stenosis. There is mild aortic valve regurgitation. Pulmonic Valve There is trace pulmonic regurgitation. Mitral Valve The mitral valve has a mildly calcified annulus. There is no mitral valve stenosis. There is no mitral valve regurgitation. Tricuspid Valve There is trace tricuspid valve regurgitation. No pulmonary hypertension, estimated pulmonary arterial systolic pressure is 29 mmHg. Pericardium/Pleural There is no pericardial effusion. Inferior Vena Cava Normal inferior vena cava with >50% collapse upon inspiration consistent with normal right atrial pressure, 5 mmHg. Aorta The aortic root size at the sinus of Valsalva is normal. The prox ascending aorta size is borderline dilated at 4.0 cm. Left Ventricular Outflow Tract Name Value Normal LVOT 2D LVOT Diameter 2.1 cm LVOT Doppler LVOT Peak Velocity 85 cm/s LVOT Peak Gradient 3 mmHg LVOT Mean Gradient 2 mmHg LVOT VTI 17 cm LVOT VTI/AV VTI Ratio 0.5 LVOT Stroke Volume 62 ml LVOT CO 12.9 l/min LVOT CI 6.3 l/min/m2 Pulmonic Valve Name Value Normal PV Doppler PV Peak Velocity 111 cm/s PV Peak Gradient 5 mmHg Mitral Valve Name Value Normal MV Diastolic Function MV E Peak Velocity 65 cm/s MV A Peak Velocity 97 cm/s MV E/A 0.7 MV Decel Time (PW) 297 ms MV Annular TDI MV E/e' (Septal) 12.4 MV E/e' (Lateral) 9.1 MV E/e' (Average) 10.7 Tricuspid Valve Name Value Normal TV Regurgitation Doppler TR Peak Velocity 247 cm/s TR Peak Gradient 24 mmHg Estimated PAP/RSVP RA Pressure 5 mmHg <=5 PA Systolic Pressure 29 mmHg <36 RV Systolic Pressure 29 mmHg <36 TV Annular TDI TV Lateral Sharlene s' Velocity 13.2 cm/s >=9.5 Aorta Name Value Normal Ascending Aorta Ao Root Diameter (MM) 3.0 cm Ao Root Diam Index (MM) 1.5 cm/m2 Aortic Valve Name Value Normal AV Doppler AV Peak Velocity 168 cm/s AV Peak Gradient 11 mmHg AV Mean Gradient 7 mmHg AV VTI 33 cm AV Area (Cont Eq VTI) 1.9 cm2 >=3.0 AV Area (Cont Eq Danyel) 1.8 cm2 AV DI (Danyel) 0.51 AV Regurgitation 2D LVOT Area 3.6 cm2 Ventricles Name Value Normal LV Dimensions 2D/MM IVS Diastolic Thickness (2D) 1.1 cm 0.6-1.0 LVID Diastole (2D) 4.1 cm 3.8-5.2 LVIW Diastolic Thickness (2D) 1.1 cm 0.6-0.9 LVID Systole (2D) 2.7 cm 2.2-3.5 LVOT Diameter 2.1 cm LV Mass (2D Cubed) 152.42 g 67.00-162.00 LV Mass Index (2D Cubed) 75 g/m2 43-95 Relative Wall Thickness (2D) 0.54 <=0.42 LV Fractional Shortening/Ejection Fraction 2D/MM LV Fractional Shortening (2D) 35 % 27-45 LV EF (2D Teichholz) 64 % LV Diastolic Volume (4C MOD) 109 ml LV EF (4C MOD) 74 % LV Diastolic Volume (2C MOD) 106 ml LV EF (2C MOD) 72 % LV Diastolic Volume (BP MOD) 108 ml 46-106 LV Diastolic Volume Index (BP MOD) 53 ml/m2 29-61 LV Systolic Volume (BP MOD) 30 ml 14-42 LV Systolic Volume Index (BP MOD) 15 ml/m2 8-24 LV EF (BP MOD) 72 % 54-74 LV Diastolic Length (4C) 8.4 cm LV Systolic Length (4C) 5.7 cm LV Stroke Volume (4C MOD) 80 ml Atria Name Value Normal LA Dimensions LA Dimension (MM) 3.6 cm 2.7-3.8 LA Volume (4C A-L) 39 ml LA Volume (BP A-L) 42 ml RA Dimensions RA Systolic Major [place] Length (4C) 4.9 cm 2.2-2.8 RA Area (4C) 16.3 cm2 <=18.0 Report Signatures
--- OUTSIDE RECORDS SUMMARY | 2025-03-21 14:04 | XMS_ITS ---
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 Role Phone Snowden Mikel Primary Care Provider Shankar LINK Unavailable Unavailable Barbara Carmona Unavailable [phone] Results Component Value Reference Range Notes UA/M w/rflx Culture, Routine Reviewed date:11/28/2024 10:54:29 AM Interpretation: Performing Lab:[facility] [place], [address] [facility], Phone - [phone], Director - Palomo Notes/Report: Specific [place] 1.024 1.005-1.030 pH 5.5 5.0-7.5 Urine-Color Yellow [...] T4 Reviewed date:11/28/2024 10:54:29 AM Interpretation: Performing Lab:[facility] [place], [address] [place] [address], Phone - [phone], Director - Palomo Notes/Report: TSH 3.420 0.450-4.500 uIU/mL CMP 14 Comprehensive Metabol ic Panel* Reviewed date:11/28/2024 10:54:29 AM Interpretation: Performing Lab:[facility] [place], [address] [facility], Phone - [phone], Director - Palomo Notes/Report: Glucose 111 70-99 [...] Reviewed date:11/28/2024 10:54:29 AM Interpretation: Performing Lab:[facility] [place], [address] [facility], Phone - [phone], Director - Palomo Notes/Report: Cholesterol, Total 231 100-199 mg/dL Triglycerides 278 0-149 mg/dL HDL Cholesterol 55 >39 mg/dL VLDL Cholesterol Matti 49 5-40 mg/dL LDL Chol Calc ([facility]) 127 0-99 mg/dL CBC With Differential/Platel et* Reviewed date:11/28/2024 10:54:29 AM Interpretation: Performing Lab:[facility] [place], [address] [facility], Phone - [phone], Director - Palomo Notes/Report: WBC 4.5 3.4-10.8 [...] Reviewed date:11/28/2024 10:54:29 AM Interpretation: Performing Lab:[facility] [place], [address] [facility], [place], Phone - [phone], Director - Palomo Notes/Report: Hemoglobin A1c 5.3 [...] Active Encounters Encounter Location Date Provider Diagnosis [facility] [address] [place] [address] 11/18/2024 Barbara Carmona Screening for diabet es [...] infection (ICD-10 - R39.9) Plan Of Treatment Next Appt Details Provider Name:Mikel Snowden , 03/27/2025 11:20:00 AM, [address], [place], [address], Progress Notes * Ana Luisa HONEYCUTTDOB:1955 (69 yo F)Acc No.[id number]:11/18/2024 UNLOCKED PROGRESS NOTE Patient: Ana Luisa MOYA Provider: Ilana Carmona APRN :1955 A ge:69 Y S ex:Female Date:11/18/2024 Address:[address] [place], [place] [id number] Pcp:Mikel Snowden 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 [...] * Electronic signature of Tamika Carmona , [id number] on 03/21/2025 at 02:04 PM CDT Sign off status: Pending * Provider: Ilana Carmona APRN Date: 0 11/18/2024 Generated for Jeison burch/James/Sayraitting on: 0 03/21/2025 02:04 PM CDT
--- OUTSIDE RECORDS SUMMARY | 2025-03-21 14:04 | XMS_ITS | Patient Health Record ---
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 Prediabetes: 5.7 - 6.4 Diabetes: >6.4 Glycemic control for adults with diabetes: <7.0 CBC With Differential/Platel et* Reviewed date:11/28/2024 10:54:29 AM Interpretation: Performing Lab:[facility], [address] [facility], Phone - [phone], Director - PhDRicdoris Notes/Report: WBC 4.5 3.4-10.8 [...] Panel* Reviewed date:11/28/2024 10:54:29 AM Interpretation: Performing Lab:[facility], [address] [place] [address], Phone - [phone], Director - [facility] Notes/Report: Cholesterol, Total 231 100-199 mg/dL Triglycerides 278 0-149 mg/dL HDL Cholesterol 55 >39 mg/dL VLDL Cholesterol Matti 49 5-40 mg/dL LDL Chol Calc ([facility]) 127 0-99 mg/dL CMP 14 Comprehensive Metabol ic Panel* Reviewed date:11/28/2024 10:54:29 AM Interpretation: Performing Lab:[facility], [address] [place] [address], Phone - [phone], Director - [facility] Notes/Report: Glucose 111 70-99 mg/dL BUN 17 [...] Reviewed date:11/28/2024 10:54:29 AM Interpretation: Performing Lab:[facility] [place], [address] [facility], Phone - [phone], Director - Lianne Notes/Report: TSH 3.420 0.450-4.500 uIU/mL UA/M w/rflx Culture, Routine Reviewed date:11/28/2024 10:54:29 AM Interpretation: Performing Lab:[facility], [address] [facility], Phone - [phone], [facility] - [facility] Notes/Report: Specific [place] 1.024 1.005-1.030 pH 5.5 5.0-7.5 Urine-Color Yellow [...] Hemoglobin A1c 5.7 4.0 - 6.4 % UA/M w/rflx Culture, Routine Reviewed date:11/14/2024 02:28:22 PM Interpretation: Performing Lab:[facility], [address] [place] [address], Phone - [phone], Director [facility] Notes/Report: Specific [place] TNP Test not performed. Test not performed. Attempts to contact your facility were unsuccessful. SAMPLE HAS BEEN DISCARDED pH TNP Test not perfor med Protein TNP Test not perfor med Glucose TNP Test not perfor med Ketones TNP Test not perfor med Specimen Status Report TNP Test not performed. Test not performed. Attempts to contact your facility were unsuccessful. TEST: [id number] UA/M w/rflx Culture, Routine SAMPLE HAS BEEN DISCARDED Written Authorization Reviewed date:11/14/2024 02:28:22 PM Interpretation: Performing Lab:[facility], [address] [place] [address], Phone - [phone], Director - [facility] Notes/Report: Written Authorization Written Authorization Received. Authorization received from Original Requisition 11-09-2024 Logged by Severo José Urinalysis In-House, Routine Reviewed date:11/07/2024 04:50:59 PM Interpretation: Performing Lab: Notes/Report: Urine-Color mark Appearance clear Leukocytes neg Nitrite, Urine neg Urobilinogen,Semi-Qn 0.2 Protein neg pH 5.5 Occult Blood ng Specific [place] 1.030 Ketones neg Bilirubin neg Glucose neg Lipid Panel* Reviewed date:11/09/2024 03:25:38 PM Interpretation: Performing Lab[facility], [address] [place] [address], Phone - [phone], Director - [facility] Notes/Report: Cholesterol, Total TNP Test not performed. No serum gel received. Triglycerides TNP Test not perfo rmed HDL Cholesterol TNP Test not per formed VLDL Cholesterol Matti TNP Unable to calculate result since non-numeric result obtained for component test. TSH Rfx on Abnormal to Free T4 Reviewed date:11/09/2024 03:25:38 PM Interpretation: Performing Lab:[address], Phone - [phone], Director - [facility] Notes/Report: TSH TNP Test not perfor med. No serum gel received. Specimen Status Report TNP Test not performed. No lavender top tube submitted. TEST: [id number] CBC With Differential/Platelet [id number] Hemoglobin A1c Request Problem TNP Test not performed. No serum gel received. TEST: [id number] Comp. Metabolic Panel [phone] [id number] Lipid Panel [id number] TSH Rfx on Abnormal to Free T4 Hemoglobin A1c* Reviewed date:11/09/2024 03:25:38 PM Interpretation: Performing Lab:[address], Phone - [phone], Director - [facility] Notes/Report: Hemoglobin A1c TNP Test not performed. No lavender top tube submitted. . Prediabetes: 5.7 - 6.4 Diabetes: >6.4 Glycemic control for adults with diabetes: <7.0 CMP 14 Comprehensive Metabol ic Panel* Reviewed date:11/09/2024 03:25:38 PM Interpretation: Performing Lab:[address], Phone - [phone], Director - [facility] Notes/Report: Glucose TNP Test not [...] ALT (SGPT) TNP Test not perfor med CBC With Differential/Platel et* Reviewed date:11/09/2024 03:25:38 PM Interpretation: Performing Lab:[address], Phone - [phone], Director - [facility] Notes/Report: WBC TNP Test not [...] 1 Abdominal hernia (K4 6.9) [facility] Referring Provider First Name Barbara Referring Provider Last Name Short Referring Provider [facility] Referred Provider Specialty General Surg saima General Notes Natasha Orr 11/14/2024 04:17:17 PM >verified with staff that patients insurance is accepted., Natasha Orr 11/14/2024 04:22:52 PM >letter mailed, message sent, Natasha Orr 11/15/2024 05:13:47 PM >Patient given number to general surgeons office., Natasha Orr 12/19/2024 12:10:13 PM >refaxing referral to [facility], Attn: Marycruz- No imaging available to send. Added lab results, Didier KUMAR, Ladonna Bhagat 02/14/2025 12:38:24 PM > Pt had surgery. Notes in Pt documents. Clinical Notes [facility], [address] [place] [address] [place] [address]. 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) Active confirmed Vital Signs Heart Rate 83 /min 01/27/2025 Temperature 97.7 degrees Fahrenheit 01/27/2025 Respiratory Rate 16 /min 01/27/2025 Blood pressure diastolic 78 mm Hg 01/27/2025 Oximetry 99 % 01/27/2025 Height 62 in 01/27/2025 Blood pressure systolic 122 mm Hg 01/27/2025 Weight 205.0 lbs 01/27/2025 BMI 37.49 kg/m2 01/27/2025 Encounters Encounter Location Date Provider Diagnosis [facility] [address] [place] [address] 11/18/2024 Barbara Carmona Screening for diabet es mellitus Z13.1 ; Screening for deficiency anemia Z13.0 ; Screening for hyperlipidemia Z13.220 ; Screening for metabolic disorder Z13.228 ; Screening for thyroid disorder Z13.29 and Symptoms of urinary tract infection R39.9 [facility] [address] [place] [address] 11/07/2024 Barbara Carmona Establishing care wi th [...] and Vaping nicotine dependence, tobacco product F17.290 [facility] [place] [address] 01/27/2025 Mikel Snowden Cardiac murmur R01.1 ; Chest pain R07.9 ; Hypertension I10 ; Diabetes mellitus E11.9 ; Umbilical hernia K42.9 ; Over weight E66.3 and Eczema of both external ears H60.[address] [place] [address] 11/09/2024 Barbara Carmona Screening for deficiency anemia Z13.0 ; Screening for metabolic disorder Z13.228 ; Screening for diabetes mellitus Z13.1 ; Screening for thyroid disorder Z13.29 and Screening for hyperlipidemia Z13.220 [facility] [place] [address] 11/14/2024 Barbara Carmona Symptoms of urinary tract infection R39.9 [facility] [address] [place] [address] 11/15/2024 Mikel Snowden [facility] [place] [address] 11/15/2024 Mikel Snowden [facility] [place] [address] 11/18/2024 Mikel Snowden [address] [place] [address] 11/28/2024 Barbara Carmona Decreased platelet count D69.6 ; Elevated triglycerides with high cholesterol E78.2 and Urinary tract infection N39.0 [facility] [address] [place] [address] 12/19/2024 Mikel Snowden [address] [place] [address] 01/30/2025 Mikel Snowden [address] [place] [address] 02/06/2025 Mikel Snowden [address] [place] [address] 02/06/2025 Mikel Snowden Assessments Encounter Date Diagnosis (ICD Code) Assessment Notes Treatment Notes Treatment Clinical Notes Section Notes 11/07/2024 Establishing care with new doctor, encounter for (ICD-10 - Z71.89) 11/07/2024 Screening for deficiency anemia (ICD-10 - Z13.0) 11/09/2024 Screening for metabolic disorder (ICD-10 - Z13.228) 11/09/2024 Screening for deficiency anemia (ICD-10 - Z13.0) 11/14/2024 Symptoms of urinary tract infection (ICD-10 - R39.9) 11/18/2024 Screening for diabetes mellitus (ICD-10 - Z13.1) 11/28/2024 Elevated triglycerides with high cholesterol (ICD-10 - E78.2) 11/28/2024 Decreased platelet count (ICD-10 - D69.6) 01/27/2025 Chest pain (ICD-10 - R07.9) C/W NON-CARDIAC PAIN 01/27/2025 Cardiac murmur (ICD-10 - R01.1) 01/27/2025 Hypertension (ICD-10 - I10) 11/09/2024 Screening for diabetes mellitus (ICD-10 - Z13.1) 11/18/2024 Screening for deficiency anemia (ICD-10 - Z13.0) 11/28/2024 Urinary tract infection (ICD-10 - N39.0) 11/07/2024 Screening for metabolic disorder (ICD-10 - Z13.228) 11/09/2024 Screening for thyroid disorder (ICD-10 - Z13.29) 11/07/2024 Screening for diabetes mellitus (ICD-10 - Z13.1) 11/18/2024 Screening for hyperlipidemia (ICD-10 - Z13.220) 01/27/2025 Diabetes mellitus (ICD-10 - E11.9) 01/27/2025 Umbilical hernia (ICD-10 - K42.9) [facility] 11/18/2024 Screening for metabolic disorder (ICD-10 - Z13.228) 11/09/2024 Screening for hyperlipidemia (ICD-10 - Z13.220) 11/07/2024 Screening for thyroid disorder (ICD-10 - Z13.29) 11/07/2024 Screening for hyperlipidemia (ICD-10 - Z13.220) 11/18/2024 Screening for thyroid disorder (ICD-10 - Z13.29) 01/27/2025 Over weight (ICD-10 - E66.3) 01/27/2025 [...] Electrocardiogram (EKG) 01/27/2025 Echo doppler exam 01/27/2025 Next Appt Details Provider Name:Mikel Snowden , 03/27/2025 11:20:00 AM, [address], [place], [address], Insurance Providers Payer Name Payer Address Payer Phone Subscriber Number Group Number Insured Name Patient Relationship to Insured Coverage Start Date Coverage End Date [employer] [address] [address] [place] [address] [id number] Ana Luisa Honeycutt Self - patient is the insured 5 Medical (General) History Surgical History Surgery Date(Month/Year) tonsillectomy 1977 cholecystectomy 1989
== END 2025-03-21 13:43 | disposition home or self-care (01) ==
LOC: ANHCARD 13:44
PROVIDERS: PCP Nurse Practitioner Family; Visit Provider Internal Medicine
DX: R93.1 Abnormal findings on diagnostic imaging of heart and coronary circulation (principal); R01.1 Cardiac murmur, unspecified; R07.9 Chest pain, unspecified
CPT/HCPCS: 93306